=== PATIENT | male | born 1995 | race Caucasian/White ===

== ENCOUNTER 2016-06-22 13:28 | Emergency (ER) | payer SELFPAY ==
[2016-06-22 15:15] LABS: Hematocrit 45 % (42-52); Hemoglobin 15.2 g/dl (14.0-18.0); Mean Corpuscular HGB Conc 34 g/dl (31-36); Mean Corpuscular Hemoglobin 29 pg (27-31); Mean Corpuscular Volume 86 fL (80-94); Mean Platelet Volume 8 um3 (7.4-10.4); Red Blood Count 5.22 10^6/ul (4.0-5.4); Red Cell Distribution Width 13 % (10.5-15); White Blood Count 8.5 10^3/ul (3.5-10.8)
[2016-06-22 15:22] LABS: Urine Bilirubin Negative (Negative); Urine Glucose Negative (Negative); Urine Nitrite Negative (Negative)
[2016-06-22 15:29] LABS: ALT 14 U/L (7-52); AST 18 U/L (13-39); Albumin 4.3 g/dL (3.2-5.2); Alkaline Phosphatase 81 U/L (34-104); Anion Gap 5 mmol/L (2-11); BUN/Creatinine Ratio 18.8 (8-20); Blood Urea Nitrogen 18 mg/dL (6-24); CO2 Carbon Dioxide 29 mmol/L (22-32); Calcium 9.5 mg/dL (8.6-10.3); Chloride 104 mmol/L (101-111); EGFR African American 127.2 (>60); EGFR Non-African American 98.9 (>60); Globulin 2.3 g/dL (2-4); Glucose 81 mg/dL (70-100); Potassium 3.9 mmol/L (3.5-5.0); Sodium 138 mmol/L (133-145); Total Protein 6.6 g/dL (6.4-8.9)
[2016-06-22 15:31] LABS: Benzodiazepine Urine Screen None Detected (None Detect)
[2016-06-22 16:06] LABS: TSH (Thyroid Stimulating Horm) 0.67 mcIU/mL (0.34-5.60)
[2016-06-22 16:15] LABS: Acetaminophen < 15 mcg/mL; Alcohol < 10 mg/dL (<10); Salicylate < 2.50 mg/dL (<30)
--- NOTE | 2016-06-22 20:59 | ED ---
Jonathan Peñaloza Billy, scribed for Mikey Mays MD on 06/22/16 at 1353 . Psychiatric Complaint - HPI Summary HPI Summary: Patient is a 21 year-old male coming to [facility] with his father requesting Adderall for his self-diagnosed "ADHD." He states that his ex-girlfriend gave him Adderall before, which helped his symptoms in the past. He is calm and cooperative in the ED. Denies any SI/HI at this time. He states that he has difficulty controlling his thoughts and self-medicates with oxycodone and EtOH. He states that he has been drinking daily for 2.5 months, and took "9 pills of oxycodone in the last week." He has been diagnosed with bipolar disorder and schizoaffective disorder but he states that he only has "very simple problems" such as difficulty "controlling his thoughts," resulting in drug abuse. - History Of Current Complaint Chief Complaint: EDMentalHealth Time Seen by Provider: 06/22/16 13:45 Accompanied By: father Hx Obtained From: Patient Onset/Duration: Gradual Onset Timing: Constant Severity Initially: Moderate Severity Currently: Moderate Aggravating Factor(s): Alcohol Use, Drug Use Alleviating Factor(s): Other - Adderall Associated Signs And Symptoms: Positive: Negative Related History: Positive For: Prior Psychiatric Issues Has Suicidal: Denies: Thoughts, With A Plan Has Homicidal: Denies: Thoughts, With A Plan PMH/Surg Hx/FS Hx/Imm Hx Endocrine/Hematology History: Denies: Hx Diabetes Psychiatric History: Reports: Hx Bipolar Disorder, Hx Substance Abuse Infectious Disease History: No Infectious Disease History: Denies: Traveled Outside the [place] in Last 30 Days - Family History Known Family History: Negative: Diabetes Family History: Denies FHx of mental health disorders. - Social History Alcohol Use: Daily Hx Substance Use: Yes Substance Use Type: Reports: Prescribed - oxycodone Review of Systems Negative: Fever Positive: Other - "difficulty controling thoughts" All Other Systems Reviewed And Are Negative: Yes Physical Exam - Summary Physical Exam Summary: VITAL SIGNS: Reviewed. GENERAL: Patient is a well developed and nourished male who is lying comfortable in the stretcher. Patient is not in any acute respiratory distress. HEAD AND FACE: No signs of trauma. No ecchymosis, hematomas or skull depressions. No sinus tenderness. EYES: PERRLA, EOMI x 2, No injected conjunctiva, no nystagmus. EARS: Hearing grossly intact. Ear canals and tympanic membranes are within normal limits. MOUTH: Oropharynx within normal limits. NECK: Supple, trachea is midline, no adenopathy, no JVD, no carotid bruit, no c- spine tenderness, neck with full ROM. CHEST: Symmetric, no tenderness at palpation LUNGS: Clear to auscultation bilaterally. No wheezing or crackles. CVS: Regular rate and rhythm, S1 and S2 present, no murmurs or gallops appreciated. ABDOMEN: Soft, non-tender. No signs of distention. No rebound no guarding, and no masses palpated. Bowel sounds are normal. EXTREMITIES: FROM in all major joints, no edema, no cyanosis or clubbing. NEURO: Alert and oriented x 3. No acute neurological deficits. Speech is normal and follows commands. SKIN: Dry and warm PSYCH: Normal mood, denies any suicidal thoughts or plan. No homicidal thoughts or plan. No signs of psychosis or pressure speech. No tangential speech. Triage Information Reviewed: Yes Vital Signs On Initial Exam: Initial Vitals Temp Pulse Resp BP Pulse Ox 98.4 F 89 20 116/67 100 06/22/16 13:33 06/22/16 13:33 06/22/16 13:33 06/22/16 13:33 06/22/16 13:33 Vital Signs Reviewed: Yes Diagnostics - Vital Signs Vital Signs Temp Pulse Resp BP Pulse Ox 06/22/16 13:33 98.4 F 89 20 116/67 100 - Laboratory Result Diagrams: 06/22/16 15:00 06/22/16 15:00 Lab Statement: Any lab studies that have been ordered have been reviewed, and results considered in the medical decision making process. Course/Dx - Course Assessment/Plan: Patient is a 21 year-old male coming to [facility] with his father requesting Adderall for his self-diagnosed "ADHD." He states that his ex- girlfriend gave him Adderall before, which helped his symptoms in the past. He is calm and cooperative in the ED. Denies any SI/HI at this time. He states that he has difficulty controlling his thoughts and self-medicates with oxycodone and EtOH. He states that he has been drinking daily for 2.5 months, and took "9 pills of oxycodone in the last week." He has been diagnosed with bipolar disorder and schizoaffective disorder but he states that he only has "very simple problems" such as difficulty "controlling his thoughts," resulting in drug abuse. Bloodwork WNL. The patient was medically cleared and awaiting MHE. Mental health saw the patient and Dr. Murguia cleared the patient from psychiatry and will be discharged home to follow up with PCP and his psychiatrist. - Differential Dx/Clinical Impression Differential Diagnosis/HQI/PQRI: Positive: Anxiety, Other - Substance abuse Provider Diagnosis: Anxiety Discharge - Discharge Plan Condition: Stable Disposition: HOME Patient Education Materials: ADHD in Adults (ED) The documentation as recorded by the Jonathan bey Billy accurately reflects the service I personally performed and the decisions made by me, Mikey Mays MD.
== END 2016-06-22 18:20 | disposition home or self-care (01) ==
LOC: ED 13:28
DX: F41.9 Anxiety disorder, unspecified (principal); F31.9 Bipolar disorder, unspecified
CPT/HCPCS: 36415; 80053; 80307; 80320; 80329; 81003; 84443; 85025; 99282; G0480